=== PATIENT | female | born 1945 | race Caucasian/White ===

== ENCOUNTER 2017-10-16 10:37 | Emergency (ER) | payer MEDICARE, BC ==
[2017-10-16] MEDS ORDERED: Aspirin 81 MG Tab.Chew PO ONE (10:51)
--- NOTE | 2017-10-16 12:01 | CR ---
INDICATION: Chest pain. CHEST: An AP portable upright view of the chest was obtained 10/16/2017 - no comparisons. The heart appears enlarged, emphasized by poor inspiration and AP positioning. The aorta is tortuous with calcification in the arch. Overlying EKG leads are noted. An active infiltrate or effusion was not identified. Evidence of exogenous obesity is noted. IMPRESSION: 1. No definite acute process. 2. ASHD with probable cardiomegaly. 3. Exogenous obesity MTDD
--- NOTE | 2017-10-16 13:47 | EDM.PDOC ---
ED HPI GENERAL MEDICAL PROBLEM - General Chief Complaint: Chest Pain Stated Complaint: CHEST PAIN Time Seen by Provider: 10/16/17 10:37 Source of Information: Reports: Patient History Limitations: Reports: No Limitations - History of Present Illness INITIAL COMMENTS - FREE TEXT/NARRATIVE: 72 y.o.w.f in prev healthy condition came with her PC to [facility] ed due to Ant chest pain off and on. Right now she is pain free. Ptr denied a heart issue in the past. No N/V/D or any other acute medical issues. Pt localized her pain at her ant chest wall. BP 114/55 Pulse 74 Temp 36.7 Pulse ox 97 % on RA Pt is pain free at this time. Risk Factors: Obesity, FH Onset Date: 09/25/17 Onset Time: 08:00 Duration: Week(s):, Intermittent Location: Reports: Chest Quality: Reports: Ache, Burning, Dull, Same as Previous Episode Improves with: Reports: None Worsens with: Reports: None - Related Data Allergies Allergy/AdvReac Type Severity Reaction Status Date / Time No Known Allergies Allergy Verified 10/16/17 10:53 Home Meds: Home Meds Calcium Citrate/Vitamin D3 [Calcium Citrate + D] 1 tab PO DAILY 04/19/14 [ History] Doucette-3 Fatty Acids [Doucette-3] 1,000 mg PO DAILY 04/20/14 [History] Bisacodyl [Dulcolax] 10 mg PO BEDTIME 10/16/17 [History] Gabapentin [Neurontin] 600 mg PO BEDTIME 10/16/17 [History] Lisinopril [Lisinopril] 10 mg PO DAILY 10/16/17 [History] Nitrofurantoin [place]/Macrocryst [Nitrofurantoin [place]-MCR] 100 mg PO BID 10/16/17 [History] Venlafaxine HCl [Venlafaxine ER] 75 mg PO DAILY 10/16/17 [History] metFORMIN [Glucophage XR] 500 mg PO BID 10/16/17 [History] Past Medical History HEENT History: Reports: Impaired Vision Cardiovascular History: Reports: Hypertension Musculoskeletal History: Reports: Arthritis, Back Pain, Chronic Endocrine/Metabolic History: Reports: Obesity/BMI 30+, Other (See Below) Other Endocrine/Metabolic History: pre diabetic Oncologic (Cancer) History: Reports: Other (See Below) Other Oncologic History: colon pollup - Past Surgical History GI Surgical History: Reports: Colonoscopy Social & Family History - Family History Family Medical History: Noncontributory - Tobacco Use Smoking Status *Q: Never Smoker - Caffeine Use Caffeine Use: Reports: Coffee - Recreational Drug Use Recreational Drug Use: No ED ROS GENERAL - Review of Systems Review Of Systems: See Below Constitutional: Reports: No Symptoms HEENT: Reports: No Symptoms Respiratory: Reports: No Symptoms Cardiovascular: Reports: Chest Pain Endocrine: Reports: No Symptoms GI/Abdominal: Reports: No Symptoms : Reports: No Symptoms Musculoskeletal: Reports: No Symptoms Skin: Reports: No Symptoms Neurological: Reports: No Symptoms Psychiatric: Reports: No Symptoms Hematologic/Lymphatic: Reports: No Symptoms Immunologic: Reports: No Symptoms ED EXAM, GENERAL - Physical Exam Exam: See Below Exam Limited By: No Limitations General Appearance: Alert, WD/WN, Mild Distress, Obese Eye Exam: Bilateral Eye: Normal Inspection Ears: Normal External Exam Ear Exam: Bilateral Ear: Auricle Normal Nose: Normal Inspection, Normal Mucosa Throat/Mouth: Normal Inspection, Normal Lips Head: Atraumatic, Normocephalic Neck: Normal Inspection, Supple, Non-Tender Respiratory/Chest: No Respiratory Distress, Lungs Clear, Normal Breath Sounds, No Accessory Muscle Use, Chest Non-Tender Cardiovascular: Normal Peripheral Pulses, Regular Rate, Rhythm, No Edema, No Gallop, No JVD, No Murmur, No Rub Peripheral Pulses: 1+: Brachial (L) GI/Abdominal: Normal Bowel Sounds, Soft, Non-Tender, No Organomegaly, No Abnormal Bruit, No Mass (Female) Exam: Deferred Rectal (Female) Exam: Deferred Back Exam: Normal Inspection, Full Range of Motion Extremities: Normal Inspection, Normal Range of Motion, Non-Tender, No Pedal Edema Neurological: Alert, Oriented, CN II-XII Intact, Normal Cognition, Normal Gait, No Motor/Sensory Deficits Psychiatric: Normal Affect, Normal Mood Skin Exam: Warm, Dry, Intact, Normal Color, No Rash Lymphatic: No Adenopathy EKG INTERPRETATION EKG Date: 10/16/17 Time: 10:55 Rhythm: NSR Rate (Beats/Min): 74 [place]: LAD-Left [place] Deviation P-Wave: Present QRS: Normal ST-T: Normal QT: Normal Comparison: NA - No Prior EKG EKG Interpretation Comments: 2nd DAISY with minor changes: NH and QTc prolonged Course - Vital Signs Text/Narrative:: 72 y.o.w.f in prev healthy condition came with her PC to [facility] ed due to Ant chest pain off and on. Right now she is pain free. Ptr denied a heart issue in the past. No N/V/D or any other acute medical issues. Pt localized her pain at her ant chest wall. BP 114/55 Pulse 74 Temp 36.7 Pulse ox 97 % on RA Pt is pain free at this time. Risk Factors: Obesity, FH PE: WNWD W F Obese, NAD, Pain free CXR: NAD Labs: CBC, BMP Nl Her BUN and CR ratio were mildly elevated, however, Her Troponin was 1.017 on 2 occasions Impression: Atypical Chest Tx: ASA Reexam: Improved Pt refused vehemently to be admitted for further care Plan: D/C with instructions Last Recorded V/S: Last Vital Signs Temp 36.8 C 10/16/17 17:08 Pulse 81 10/16/17 10:37 Resp 19 10/16/17 17:08 BP 125/75 10/16/17 17:08 Pulse Ox 97 10/16/17 17:08 - Orders/Labs/Meds Labs: Laboratory Tests 10/16/17 10/16/17 10/16/17 Range/Units 11:20 11:20 11:20 WBC 5.1 (4.5-12.0) X10-3/uL RBC 4.93 (3.23-5.20) x10(6)uL Hgb 15.1 (11.5-15.5) g/dL Hct 45.9 (30.0-51.3) % MCV 93.1 (80-96) fL MCH 30.6 (27.7-33.6) pg MCHC 32.9 (32.2-35.4) g/dL RDW 13.3 (11.5-15.5) % Plt Count 165 (125-369) X10(3)uL MPV 8.8 (7.4-10.4) fL Neut % (Auto) 64.3 (46-82) % Lymph % (Auto) 24.1 (13-37) % [place] % (Auto) 8.9 (4-12) % Eos % (Auto) 1 (1.0-5.0) % Baso % (Auto) 2 (0-2) % Neut # (Auto) 3.2 (1.6-8.3) # Lymph # (Auto) 1.2 (0.6-5.0) # [place] # (Auto) 0.5 (0.0-1.3) # Eos # (Auto) 0.1 (0.0-0.8) # Baso # (Auto) 0.1 (0.0-0.2) # PT 11.1 (8.7-11.1) INR 1.10 (0.89-1.13) D-Dimer, Quantitative (100-400) ng/mL Sodium 140 (135-145) mmol/L Potassium 4.4 (3.5-5.3) mmol/L Chloride 104 (100-110) mmol/L Carbon Dioxide 30 (21-32) mmol/L BUN 25 H (7-18) mg/dL Creatinine 1.0 (0.55-1.02) mg/dL Est Cr Clr Drug Dosing 44.41 mL/min Estimated GFR (MDRD) 54 L (>60) BUN/Creatinine Ratio 25.0 H (9-20) Glucose 100 (80-116) mg/dL Calcium 10.1 (8.6-10.2) mg/dL Troponin I (<0.017-0.056) ng/mL 10/16/17 10/16/17 10/16/17 Range/Units 11:20 11:20 16:20 WBC (4.5-12.0) X10-3/uL RBC (3.23-5.20) x10(6)uL Hgb (11.5-15.5) g/dL Hct (30.0-51.3) % MCV (80-96) fL MCH (27.7-33.6) pg MCHC (32.2-35.4) g/dL RDW (11.5-15.5) % Plt Count (125-369) X10(3)uL MPV (7.4-10.4) fL Neut % (Auto) (46-82) % Lymph % (Auto) (13-37) % [place] % (Auto) (4-12) % Eos % (Auto) (1.0-5.0) % Baso % (Auto) (0-2) % Neut # (Auto) (1.6-8.3) # Lymph # (Auto) (0.6-5.0) # [place] # (Auto) (0.0-1.3) # Eos # (Auto) (0.0-0.8) # Baso # (Auto) (0.0-0.2) # PT (8.7-11.1) INR (0.89-1.13) D-Dimer, Quantitative 108 (100-400) ng/mL Sodium (135-145) mmol/L Potassium (3.5-5.3) mmol/L Chloride (100-110) mmol/L Carbon Dioxide (21-32) mmol/L BUN (7-18) mg/dL Creatinine (0.55-1.02) mg/dL Est Cr Clr Drug Dosing mL/min Estimated GFR (MDRD) (>60) BUN/Creatinine Ratio (9-20) Glucose (80-116) mg/dL Calcium (8.6-10.2) mg/dL Troponin I < 0.017 L < 0.017 L (<0.017-0.056) ng/mL Meds: Medications Discontinued Medications Generic Name Dose Route Start Last Admin Trade Name Freq PRN Reason Stop Dose Admin Aspirin 324 mg 10/16/17 10:51 10/16/17 10:54 Aspirin PO 10/16/17 10:52 324 mg ONETIME ONE Administration Departure - Departure Time of Disposition: 17:13 Disposition: Home, Self-Care 01 Condition: Good Clinical Impression: Atypical chest pain Instructions: Nonspecific Chest Pain Referrals: Karol Tong, ADDICTION PSYCHIATRIST [Primary Care Provider] - Forms: ED Department Discharge Additional Instructions: Please take aspirin 325mg daily, please follow up with your regular MD at clinic next week for recheck. Please come back if your symptoms get worse acutely
[2017-10-16 20:41] VITALS: BP 125/75
== END 2017-10-16 17:25 | disposition home or self-care (01) ==
LOC: FB.ED 10:37
DX: R07.89 Other chest pain (principal); I10 Essential (primary) hypertension; Z79.899 Other long term (current) drug therapy
CPT/HCPCS: 36415; 71045; 80048; 84484; 85025; 85379; 85610; 93005; 99285; A9270

== ENCOUNTER 2023-03-10 14:55 | Emergency (ER) | payer MEDICARE, BC ==
[2023-03-10] MEDS: Ondansetron 4 MG Tab.DIS PO ONE (15:57)
[2023-03-10 16:31] VITALS: BP 132/76; PULSE 85
== END 2023-03-10 16:25 | disposition home or self-care (01) ==
LOC: FB.ED 14:55
DX: K59.00 Constipation, unspecified (principal); C22.8 Malignant neoplasm of liver, primary, unspecified as to type; I10 Essential (primary) hypertension; M19.90 Unspecified osteoarthritis, unspecified site; E66.9 Obesity, unspecified; Z79.899 Other long term (current) drug therapy
CPT/HCPCS: 74019; 99283; Q0162